=== PATIENT | male | born 2005 | race Caucasian/White ===

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

== ENCOUNTER 2024-06-29 01:21 | Emergency (ER) | payer BC, SELFPAY ==
[2024-06-29 01:22] VITALS: BP 124/77; PULSE 64; RESP 18; TEMP 37.1; O2SAT 97
--- NOTE | 2024-06-29 01:30 | ED.DENTAL ---
HPI - Dental/Oral General Chief complaint: Dental/Oral Stated complaint: dental pain Time Seen by Provider: 06/29/24 01:29 Source: patient and family Mode of arrival: ambulatory Limitations: no limitations History of Present Illness HPI Narrative: patient complaining of left lower teeth pain often on for over 3 months scheduled see an bariatric surgeon but he does not have money at this time. Patient was trying to clean his left ear with Q-tips and notice have some touch of blood on it. He denies any fever, chills, nausea, vomiting, headache, trouble swallowing or breathing. patient's mother telling me that patient like to sleep inside the bathtub Teeth map:  1. Dental pain, no swelling, no bruises, no discharge Related Data Allergies Allergy/AdvReac Type Severity Reaction Status Date / Time cefadroxil (From Duricef) Allergy Hives Verified 06/29/24 01:35 Penicillins Allergy Hives Verified 06/29/24 01:35 prednisone Allergy Joint Pain Verified 06/29/24 01:35 Review of Systems Review of Systems: All systems reviewed & are unremarkable except as noted in HPI and below PMFSH Past Medical History Medical History Hx of migraines ADHD Aspergers' syndrome Bradycardia Surgical History Surgical History No pertinent past surgical history Exam Narrative: General appearance: Well-developed, well-nourished Skin: Normal color Head: Normocephalic, nontraumatic Eyes: Clear conjunctiva ENT: Oropharynx normal, left ear exam showed extensive erythematous changes of the ear canal, no discharge, no bleeding tympanic membrane is intact, within normal color, nose normal Neck: Supple, nontender Musculoskeletal: Normal range of motion, nontender back Neurologic: Alert and oriented ?3, 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 Patient mother telling me that patient like to sleep inside the bathtub Discharged on clindamycin and ciprofloxacin eyedrops to be used for the left Ear Critical Care Time Critical Care Time Critical Care Time: No Discharge Plan Discharge Clinical Impression: Otitis externa, Pain, dental Patient Disposition: Home, Self-Care Condition: Stable Instructions: Antibiotic Form Additional Instructions: Return if symptoms are worsening , call your family physician for appointment, take Tylenol as as needed for aches and pain, continue home medications. Patient Language: Slovenian Prescriptions: New ciprofloxacin HCl 0.3 % drops 1 drp LEFT EYE Q4H 5 Days Qty: 10 0RF Rx Instructions: administer while awake clindamycin HCl [Cleocin HCl] 300 mg capsule 450 mg PO Q8H 7 Days Qty: 32 0RF Follow-up/Referrals: Gabino,Ayleen Adrian MD [Primary Care Provider] - Stand Alone Forms: Work/School Release IP
--- OUTSIDE RECORDS SUMMARY | 2024-06-29 01:35 | XMS_ITS | Clinical Summary ---
Author Organization [facility] Address [address] [place] [id number] Care Team Providers Care Denture Technician Name Role Phone Ayleen Lloyd MD Primary Care Provider [phone] Allergies Active Allergy Reactions Criticality Noted Date Comments Cefadroxil Hives High 01/25/2019 Penicillins Hives Medium 01/25/2019 Prednisone Other (see comment) Medium 01/25/2019 Joint pain Medications No known medications Active Problems Problem Noted Date Diagnosed Date Contusion of right hand, initial encounter 06/24 Closed avulsion fracture of lateral malleolus of right fibula with routine healing, subsequent encounter 05/22/2022 Family History Medical History Relation Comments No Known Problems Brother 1 No Known Problems Brother 2 No Known Problems Father No Known Problems Mother Diabetes Paternal Grandfather Relation Status Comments Brother 1 Alive Brother 2 Alive Father Alive Mother Alive Paternal Grandfather Social History Tobacco Use Types Packs/Day Years Used Date Smoking Tobacco: Never Smokeless Tobacco: Never Tobacco Cessation:Counseling Given: Not Answered Alcohol Use Standard Drinks/Week Comments No 0 (1 standard drink = 0.6 oz pur e alcohol) AUDIT-C Answer Date Recorded Frequency of Alcohol Consumption Never 01/25/2019 Average Number of Drinks Not on file 019 Frequency of Binge Drinking Not on file 08/2018 Sex and Gender Information Value Date Recorded Sex Assigned at Not on file 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 Gender Identity Not on file Sexual Orientation Not on file Last Filed Vital Signs Vital Sign Reading Time Taken Comments Blood Pressure 111/59 01/25/2019 9:15 AM CDT Pulse 89 01/25/2019 9:15 AM CDT Temperature 36.7 C (98 F) 01/25/2019 9:15 AM CDT Respiratory Rate 18 01/25/2019 9:15 AM CDT Oxygen Saturation 99% 01/25/2019 9:15 AM CDT Inhaled Oxygen Concentration - - Weight 59 kg (130 lb) 06/24/2022 4:01 PM ENVIRONMENTAL CONSULTANT Height 157.5 cm (5' 2 ) 06/24/2022 4:01 PM ENVIRONMENTAL CONSULTANT Body Mass Index 23.78 06/24/2022 4:01 PM ENVIRONMENTAL CONSULTANT Body Mass Index Percentile 73.90% 06/24/2022 4:0 1 PM ENVIRONMENTAL CONSULTANT Growth Chart: [facility] (Boys, 2-2 0 Years) Plan of Treatment Health Maintenance Due Date Last Done Comments Hepatitis B Vaccines (3 of 3 - 3-dose series) 06/05/2005 04/10/2005, 2004 Annual Physical 10/11/2007 HPV Vaccines (1 - Male 3-dose series) 10/11/2019 Meningococcal B Vaccine (1 of 2 - Standard) 2020 Hepatitis C 2022 COVID-19 Vaccine (1 - season) 2024 Influenza Adult (#1) 2024 05/05/2016 DTaP, Tdap and Td Vaccines (6 - Td or Tdap) 12/24/2025 12/25/2015, 01/12/2006, 04/10/2005, Additional history exists Pneumococcal Vaccine: Pediatrics (0 to 5 Years) and At-Risk Patients (6 to 64 Years) Aged Out 01/12/2006, 04/10/2005, 02/13/2005, Additional history exists No longer eligible based on patient's age to complete this topic Meningococcal Vaccine Completed 04/08/2022, 016 RSV Immunizations Under 20 Months Aged Out No longer eligible based on patient's age to complete this topic Insurance [employer] Care Teams Denture Technician Relationship Specialty Start Date End Date Ayleen Lloyd MD [address] [place] [phone] PCP - General PEDIATRICS 01/25/19
--- OUTSIDE RECORDS SUMMARY | 2024-06-29 01:35 | XMS_ITS | Encounter Summary ---
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
== END 2024-06-29 01:56 | disposition home or self-care (01) ==
PROVIDERS: Emergency Provider Emergency Medicine; PCP Pediatrics
DX: H60.90 Unspecified otitis externa, unspecified ear (principal); K08.89 Other specified disorders of teeth and supporting structures
CPT/HCPCS: 99283